=== PATIENT | female | born 1990 | race Caucasian/White ===

== ENCOUNTER 2017-10-24 13:09 | Emergency (ER) | payer SELFPAY ==
--- NOTE | 2017-10-24 13:24 | NUR ---
CALLED IN [facility]-NO ANSWER
--- NOTE | 2017-10-24 13:27 | NUR ---
CALLED IN [facility]-NO ANSWER
--- NOTE | 2017-10-24 13:41 | NUR ---
CALLED IN [facility]- NO ANSWER
== END 2017-10-24 13:42 | disposition left against medical advice (07) ==
LOC: ER 13:11
DX: Z53.21 Procedure and treatment not carried out due to patient leaving prior to being seen by health care provider (principal)

== ENCOUNTER 2018-07-03 12:52 | Emergency (ER) | payer OTHER, MEDICAID ==
[~2018-07-03] VITALS: Ht 149.9 cm; Wt 37.7 kg
[2018-07-03] MEDS ORDERED: HYDROCODONE/APAP 5/325MG 1 EACH TABLET PO STA (13:19)
[2018-07-03] MEDS ORDERED: HYDROCODONE/APAP 5/325MG 1 EACH TABLET ONE (13:25)
[2018-07-03 13:45] LABS: BASOPHILS % (AUTO) 0.6 % (0.0-2.0); EOSINOPHILS % (AUTO) 0.3 % (0.0-6.0); HEMATOCRIT 42 % (33-45); LYMPHOCYTES # (AUTO) 2.2 /CMM (0.8-4.8); LYMPHOCYTES % (AUTO) 43.8 % (20.0-44.0); MEAN CORPUSCULAR HGB CONC 34 g/dl (31.0-36.0); MEAN CORPUSCULAR VOLUME 84 fL (82-100); MONOCYTES # (AUTO) 0.4 /CMM (0.1-1.30); MONOCYTES % (AUTO) 7.9 % (2.0-12.0); NEUTROPHILS # (AUTO) 2.4 /CMM (1.8-8.9); NEUTROPHILS % (AUTO) 47.4 % (43.0-81.0); PLATELET COUNT (AUTO) 253 /CMM (150-450); RED BLOOD CELL COUNT(AUTO) 4.95 MIL/uL (4.0-5.2); WHITE BLOOD COUNT (AUTO) 5.1 K/uL (4.3-11.0)
[2018-07-03 13:51] LABS: CALCIUM, SERUM 8.4 mg/dL (8.5-10.1); CREATININE 0.7 mg/dL (0.6-1.3); POTASSIUM 4.2 mmol/L (3.5-5.1)
[2018-07-03 13:57] LABS: ALBUMIN 3.9 g/dL (3.4-5.0); BILIRUBIN,TOTAL 0.4 mg/dL (0.2-1.0)
[2018-07-03 14:07] LABS: APPEARANCE,URINE SL CLOUDY (CLEAR); BILIRUBIN,URINE 1+ (NEGATIVE); BLOOD, URINE NEGATIVE Ery/uL (NEGATIVE); COLOR,URINE YELLOW (YELLOW); KETONES,URINE 1+ (NEGATIVE); LEUKOCYTE ESTERASE ,URINE TRACE (NEGATIVE); NITRITE, URINE NEGATIVE (NEGATIVE); PROTEIN,URINE TRACE mg/dl (NEGATIVE); UGLUCOSE NEGATIVE (NEGATIVE); UROBILINOGEN,URINE 0.2 EU/dL (0.2)
[2018-07-03 14:25] LABS: BACTERIA,URINE Few /HPF (None Seen); MUCUS,URINE Few /LPF (None Seen); RBC,URINE 0-2 /HPF (0-2); SQUAMOUS EPITHELIAL CELL,UR Moderate /HPF (None Seen)
[2018-07-03 14:53] VITALS: BP 110/71
== END 2018-07-03 14:54 | disposition home or self-care (01) ==
LOC: ER 13:04
DX: M79.10 Myalgia, unspecified site (principal); K21.9 Gastro-esophageal reflux disease without esophagitis; G40.909 Epilepsy, unspecified, not intractable, without status epilepticus; F17.200 Nicotine dependence, unspecified, uncomplicated; F12.10 Cannabis abuse, uncomplicated
CPT/HCPCS: 36415; 80053-TC; 80164-TC; 81000-TC; 84703-TC; 85025-TC; A4606; Z7610

== ENCOUNTER → 2021-05-06 | Emergency (ER) | payer MEDICARE, OTHER ==
[~2021-05-06] VITALS: Ht 149.9 cm; Wt 40.8 kg
[~2021-05-06] MED LIST: IV NS 0.9% 1,000 ML BAG IV ONE; KETOROLAC TROMETHAMINE INJ 30 MG/ML VIAL IV ONE; KETOROLAC TROMETHAMINE INJ 30 MG/ML VIAL ONE; ONDANSETRON HCL/PF 4 MG/2 ML VIAL IVP ONE; ONDANSETRON HCL/PF 4 MG/2 ML VIAL ONE
--- NOTE | 2021-05-06 11:46 | NUR ---
Pt to the er bed 6 bibself C/O "I think I might be having an ulcerative collitis flare-up". pt c/o N/V denies diarrhea. Patient is alert and oriented x4. patient is ambulatory with a steady gait. Breathing evenly and unlabored on room air at 100%. Patient is connected to the monitor. Will continue to monitor patient closely.
--- NOTE | 2021-05-06 11:48 | NUR ---
urine collected and sent to the lab.
--- NOTE | 2021-05-06 12:01 | NUR ---
Patient c/o lower abdominal pain. MD notified. No orders given.
[2021-05-06 12:03] VITALS: BP 111/82
[2021-05-06 12:27] LABS: BASOPHILS # (AUTO) 0.2 K/uL (0.0-0.2); BASOPHILS % (AUTO) 2.1 % (0.0-2.0); EOSINOPHILS % (AUTO) 0.4 % (0.0-6.0); HEMATOCRIT 40 % (33-45); HEMOGLOBIN 13.2 g/dL (11.5-14.8); LYMPHOCYTES # (AUTO) 1.2 K/uL (0.8-4.8); MEAN CORPUSCULAR HGB CONC 33 g/dl (31.0-36.0); MEAN CORPUSCULAR VOLUME 83 fL (82-100); MONOCYTES # (AUTO) 0.5 K/uL (0.1-1.30); MONOCYTES % (AUTO) 5.6 % (2.0-12.0); NEUTROPHILS # (AUTO) 6.3 K/uL (1.8-8.9); NEUTROPHILS % (AUTO) 76.9 % (43.0-81.0); PLATELET COUNT (AUTO) 272 K/uL (150-450); RED BLOOD CELL COUNT(AUTO) 4.82 MIL/uL (4.0-5.2); WHITE BLOOD COUNT (AUTO) 8.1 K/uL (4.3-11.0)
[2021-05-06 12:34] LABS: CALCIUM, SERUM 8.7 mg/dL (8.5-10.1); CREATININE 0.6 mg/dL (0.6-1.3); POTASSIUM 3.8 mmol/L (3.5-5.1)
[2021-05-06 12:39] LABS: ALBUMIN 3.7 g/dL (3.4-5.0); BILIRUBIN,DIRECT 0.1 mg/dL (0.0-0.2); BILIRUBIN,TOTAL 0.4 mg/dL (0.2-1.0); TOTAL PROTEIN, SERUM 6.4 g/dL (6.4-8.2)
--- NOTE | 2021-05-06 13:09 | NUR ---
Patient taken to Ct.
--- NOTE | 2021-05-06 14:37 | NUR ---
Ultrasound at bedside
== END | disposition home or self-care (01) ==
LOC: ER 11:01
DX: R10.84 Generalized abdominal pain (principal); N83.201 Unspecified ovarian cyst, right side; K59.00 Constipation, unspecified; R22.2 Localized swelling, mass and lump, trunk; F11.20 Opioid dependence, uncomplicated; K51.90 Ulcerative colitis, unspecified, without complications; G40.909 Epilepsy, unspecified, not intractable, without status epilepticus; K21.9 Gastro-esophageal reflux disease without esophagitis; F12.90 Cannabis use, unspecified, uncomplicated
CPT/HCPCS: 36415; 74176; 76856; 80048; 80076; 83690; 84702; 85025; 96361; 96374; 96375; 99285; J1885; J2405

== ENCOUNTER 2022-01-06 12:11 | Emergency (ER) | payer MEDICARE, OTHER ==
[~2022-01-06] VITALS: Ht 149.9 cm; Wt 40.8 kg
[2022-01-06 13:05] LABS: BASOPHILS % (AUTO) 0.2 % (0.0-2.0); EOSINOPHILS % (AUTO) 0.3 % (0.0-6.0); HEMATOCRIT 42 % (33-45); HEMOGLOBIN 13.9 g/dL (11.5-14.8); LYMPHOCYTES # (AUTO) 1.3 K/uL (0.8-4.8); MEAN CORPUSCULAR HGB CONC 33 g/dl (31.0-36.0); MEAN CORPUSCULAR VOLUME 83 fL (82-100); MONOCYTES # (AUTO) 1.1 K/uL (0.1-1.30); MONOCYTES % (AUTO) 8.4 % (2.0-12.0); NEUTROPHILS # (AUTO) 10.9 K/uL (1.8-8.9); NEUTROPHILS % (AUTO) 81.1 % (43.0-81.0); PLATELET COUNT (AUTO) 290 K/uL (150-450); WHITE BLOOD COUNT (AUTO) 13.4 K/uL (4.3-11.0)
--- NOTE | 2022-01-06 13:05 | NUR ---
CARMENZA [id number] From Home "SO states she is abusing prescription meds now c/o Abdominal Pain. PLACED ON BED, AAOX4.
[2022-01-06 13:13] LABS: CALCIUM, SERUM 8.8 mg/dL (8.5-10.1); CREATININE 0.6 mg/dL (0.6-1.3); POTASSIUM 3.7 mmol/L (3.5-5.1)
[2022-01-06 13:19] LABS: ALBUMIN 4.1 g/dL (3.4-5.0); BILIRUBIN,DIRECT 0.1 mg/dL (0.0-0.2); BILIRUBIN,TOTAL 0.5 mg/dL (0.2-1.0); TOTAL PROTEIN, SERUM 6.9 g/dL (6.4-8.2)
--- NOTE | 2022-01-06 13:20 | NUR ---
PATIENT ELSUPRIYA DE LA CRUZ AWARE
[2022-01-06 13:26] VITALS: BP 128/80
== END 2022-01-06 13:35 | disposition home or self-care (01) ==
LOC: ER 12:14
DX: Z53.21 Procedure and treatment not carried out due to patient leaving prior to being seen by health care provider (principal)
CPT/HCPCS: 36415; 80048-TC; 80076-TC; 83690-TC; 85025-TC

== ENCOUNTER 2022-03-02 21:39 | Emergency (ER) | payer MEDICARE, OTHER ==
[~2022-03-02] VITALS: Ht 149.9 cm; Wt 52.2 kg
--- NOTE | 2022-03-02 21:45 | NUR ---
[id number] FROM HOME C/O SEIZURE 30 MINUTES AGO. SEIZURE X2 TODAY. HX SEIZURE. PT A/OX4. TOLERATING R/A WELL WITH NO RESP DISTRESS. CONNECTED PT TO POX AND MONITOR. PT AMBULATORY WITH STEADY GAIT. SAFETY & SEIZURE PRECAUTIONS IN PLACE.
--- NOTE | 2022-03-02 21:58 | NUR ---
LAC #20G S/L BLOOD COLLECTED AND SENT TO LAB
--- NOTE | 2022-03-02 22:02 | NUR ---
PT SIGNED WAIVER FORM; VERBALIZED UNDERSTANDING
--- NOTE | 2022-03-02 22:10 | NUR ---
URINE COLLECTED AND SENT TO LAB
--- NOTE | 2022-03-02 22:21 | NUR ---
POC ACCUCHECK BS 83
--- NOTE | 2022-03-02 22:22 | NUR ---
EMT AT PT'S BEDSIDE FOR EKG
[2022-03-02] MEDS ORDERED: ACETAMINOPHEN 325 MG TABLET PO ONE (22:30)
[2022-03-02] MEDS ORDERED: IV NS 0.9% 500 ML BAG IV ONE (22:30)
[2022-03-02] MEDS ORDERED: ACETAMINOPHEN 325 MG TABLET ONE (22:33)
[2022-03-02 22:37] LABS: BASOPHILS % (AUTO) 0.4 % (0.0-2.0); EOSINOPHILS % (AUTO) 0.5 % (0.0-6.0); HEMATOCRIT 40 % (33-45); HEMOGLOBIN 13.1 g/dL (11.5-14.8); LYMPHOCYTES # (AUTO) 2.1 K/uL (0.8-4.8); MEAN CORPUSCULAR HGB CONC 33 g/dl (31.0-36.0); MEAN CORPUSCULAR VOLUME 83 fL (82-100); MONOCYTES # (AUTO) 0.4 K/uL (0.1-1.30); MONOCYTES % (AUTO) 6.6 % (2.0-12.0); NEUTROPHILS # (AUTO) 3.2 K/uL (1.8-8.9); NEUTROPHILS % (AUTO) 55.5 % (43.0-81.0); PLATELET COUNT (AUTO) 301 K/uL (150-450); RED BLOOD CELL COUNT(AUTO) 4.81 MIL/uL (4.0-5.2); WHITE BLOOD COUNT (AUTO) 5.7 K/uL (4.3-11.0)
--- NOTE | 2022-03-02 22:38 | NUR ---
PT REFUSED CT; HAD LAST CT 1 MONTH AGO WITH NEGATIVE RESULTS. DR. CORDOBA NOTIFIED
[2022-03-02 22:47] LABS: CALCIUM, SERUM 9.1 mg/dL (8.5-10.1); CARBON DIOXIDE 30 mmol/L (21-32); CHLORIDE 100 mmol/L (98-107); CREATININE 0.7 mg/dL (0.6-1.3); GLUCOSE 95 mg/dL (74-106); POTASSIUM 3.5 mmol/L (3.5-5.1); SODIUM SERUM 136 mmol/L (136-145); UREA NITROGEN, BLOOD 12 mg/dL (7-18)
--- NOTE | 2022-03-02 22:51 | NUR ---
PT REFUSED DEPAKOTE. DR. CORDOBA DO AWARE.
[2022-03-02 22:54] LABS: ALANINE AMINOTRANSFERASE 20 U/L (12-78); ALBUMIN 4.2 g/dL (3.4-5.0); ALKALINE PHOSPHATASE 60 U/L (46-116); ASPARTATE AMINOTRANSFERASE 24 U/L (15-37); BILIRUBIN,DIRECT 0.2 mg/dL (0.0-0.2); BILIRUBIN,TOTAL 0.7 mg/dL (0.2-1.0); TOTAL PROTEIN, SERUM 7.3 g/dL (6.4-8.2)
[2022-03-02 22:55] LABS: ALCOHOL, BLOOD < 3 mg/dL (0-0)
[2022-03-02 23:01] LABS: BILIRUBIN,URINE MODERATE (NEGATIVE); COLOR,URINE YELLOW (YELLOW); LEUKOCYTE ESTERASE ,URINE TRACE (NEGATIVE); NITRITE, URINE NEGATIVE (NEGATIVE); PROTEIN,URINE TRACE mg/dl (NEGATIVE); UGLUCOSE NEGATIVE (NEGATIVE)
[2022-03-02 23:05] LABS: BACTERIA,URINE Few /HPF (None Seen); MUCUS,URINE Few /LPF (None Seen); SQUAMOUS EPITHELIAL CELL,UR Few /HPF (None Seen)
--- NOTE | 2022-03-02 23:12 | NUR ---
PT REFUSED CHEST XRAY
[2022-03-02] MEDS ORDERED: NITR100C6 PO (23:14)
--- NOTE | 2022-03-02 23:25 | NUR ---
IV removed. Catheter intact and site benign. Pressure and 4x4 applied to site. No bleeding noted.
--- NOTE | 2022-03-02 23:25 | NUR ---
Patient discharged to home in stable condition. Written and verbal after care instructions given. Patient verbalizes understanding of instruction.
[2022-03-02 23:26] VITALS: BP 112/68
== END 2022-03-02 23:27 | disposition home or self-care (01) ==
LOC: ER 21:46
DX: G40.909 Epilepsy, unspecified, not intractable, without status epilepticus (principal); F19.10 Other psychoactive substance abuse, uncomplicated; N39.0 Urinary tract infection, site not specified; Z91.14 Patient's other noncompliance with medication regimen; K21.9 Gastro-esophageal reflux disease without esophagitis; F12.90 Cannabis use, unspecified, uncomplicated
CPT/HCPCS: 99284; 93005; 85025; 80048; 87086; 80076; 81001; 36415; 85730; 82962; 80320; 80307; J7040; G0480

== ENCOUNTER 2022-03-25 15:07 | Emergency (ER) | payer MEDICARE, OTHER ==
[~2022-03-25] VITALS: Ht 149.9 cm; Wt 37.2 kg
[~2022-03-25 15:07] MED LIST changes: -IV NS 0.9% 1,000 ML BAG IV ONE; -KETOROLAC TROMETHAMINE INJ 30 MG/ML VIAL IV ONE; -KETOROLAC TROMETHAMINE INJ 30 MG/ML VIAL ONE; +NITR100C6 PO; -ONDANSETRON HCL/PF 4 MG/2 ML VIAL IVP ONE; -ONDANSETRON HCL/PF 4 MG/2 ML VIAL ONE
--- NOTE | 2022-03-25 15:23 | NUR ---
DR CHAO AT THE BEDSIDE
[2022-03-25] MEDS ORDERED: ONDANSETRON HCL/PF 4 MG/2 ML VIAL ONE ×2 (15:24→17:04)
[2022-03-25] MEDS ORDERED: IV NS 0.9% 1,000 ML BAG IV ONE (15:30)
[2022-03-25] MEDS ORDERED: MORPHINE SULFATE INJ 2 MG/ML DISP.SYRIN IV ONE (15:30)
[2022-03-25] MEDS ORDERED: ONDANSETRON HCL/PF 4 MG/2 ML VIAL IVP ONE (15:30)
[2022-03-25] MEDS ORDERED: MORPHINE SULFATE INJ 4 MG/ML DISP.SYRIN ONE (15:35)
[2022-03-25 16:06] LABS: BASOPHILS % (AUTO) 0.5 % (0.0-2.0); EOSINOPHILS % (AUTO) 0.8 % (0.0-6.0); HEMATOCRIT 43 % (33-45); HEMOGLOBIN 13.9 g/dL (11.5-14.8); LYMPHOCYTES # (AUTO) 2.6 K/uL (0.8-4.8); LYMPHOCYTES % (AUTO) 28.3 % (20.0-44.0); MEAN CORPUSCULAR HGB CONC 32 g/dl (31.0-36.0); MEAN CORPUSCULAR VOLUME 85 fL (82-100); MONOCYTES # (AUTO) 0.9 K/uL (0.1-1.30); MONOCYTES % (AUTO) 9.4 % (2.0-12.0); NEUTROPHILS # (AUTO) 5.6 K/uL (1.8-8.9); PLATELET COUNT (AUTO) 238 K/uL (150-450); RED BLOOD CELL COUNT(AUTO) 5.08 MIL/uL (4.0-5.2); WHITE BLOOD COUNT (AUTO) 9.2 K/uL (4.3-11.0)
[2022-03-25 16:23] LABS: BILIRUBIN,DIRECT 0.2 mg/dL (0.0-0.2); BILIRUBIN,TOTAL 0.6 mg/dL (0.2-1.0); CALCIUM, SERUM 9.1 mg/dL (8.5-10.1); CREATININE 0.6 mg/dL (0.6-1.3); TOTAL PROTEIN, SERUM 6.9 g/dL (6.4-8.2)
[2022-03-25] MEDS ORDERED: ONDANSETRON HCL/PF - ER 4 MG/2 ML VIAL IV ONE (17:00)
--- NOTE | 2022-03-25 18:04 | NUR ---
PT PROVIDED W/ SALTINE CRACKERS AND APPLE JUICE; PT ABLE TO EAT AND SWALLOW FOOD. NO COMPLAINT OF NAUSEA/VOMITING.
--- NOTE | 2022-03-25 18:21 | NUR ---
DR CHAO MADE AWARE THAT PT ABLE TO TOLERATE PO CHALLENGE.
--- NOTE | 2022-03-25 18:43 | NUR ---
CANCEL CT SCAN PER DR CHAO
[2022-03-25] MEDS ORDERED: POTASSIUM CHLORIDE 20 MEQ TAB.PRT.SR PO ONE ×2 (19:00→19:05)
--- NOTE | 2022-03-25 19:04 | NUR ---
URINE SAMPLE COLLECTED AND SENT TO LAB
--- NOTE | 2022-03-25 19:10 | NUR ---
IV removed. Catheter intact and site benign. Pressure and 4x4 applied to site. No bleeding noted.
--- NOTE | 2022-03-25 19:22 | NUR ---
Patient discharged to home in stable condition. Written and verbal after care instructions given. Patient verbalizes understanding of instruction.
[2022-03-25 19:23] VITALS: BP 104/67
[2022-03-25 20:02] LABS: BILIRUBIN,URINE NEGATIVE (NEGATIVE); COLOR,URINE YELLOW (YELLOW); LEUKOCYTE ESTERASE ,URINE TRACE (NEGATIVE); NITRITE, URINE NEGATIVE (NEGATIVE); PROTEIN,URINE NEGATIVE (NEGATIVE); UGLUCOSE NEGATIVE (NEGATIVE); UROBILINOGEN,URINE 0.2 EU/dL (0.2)
[2022-03-25 20:12] LABS: BACTERIA,URINE 1+ /HPF (None Seen); RBC,URINE 0-2 /HPF (0-2)
== END 2022-03-25 19:23 | disposition home or self-care (01) ==
LOC: ER 15:25
DX: R10.84 Generalized abdominal pain (principal); R11.2 Nausea with vomiting, unspecified; G40.909 Epilepsy, unspecified, not intractable, without status epilepticus; F17.200 Nicotine dependence, unspecified, uncomplicated; K21.9 Gastro-esophageal reflux disease without esophagitis; Z88.2 Allergy status to sulfonamides
CPT/HCPCS: 99284; 96374; 96361; 96375; 96376; 85025; 80048; 87086; 83690; 80076; 84703; 81001; 36415; J2270; J2405 ×3; J7030

== ENCOUNTER 2022-08-07 07:07 | Emergency (ER) | payer MEDICARE, OTHER ==
[~2022-08-07] VITALS: Ht 160 cm; Wt 46.3 kg
--- NOTE | 2022-08-07 07:19 | NUR ---
[id number] FROM HOME FOR CHRONIC HEADACHE X 5 MONTHS, WORSE THIS MORNING. PT WAS OFFERED CT SCAN BUT CHOSE TO LEAVE AND GO TO THE [facility] WHERE HER PRIMARY DOCTOR IS. PT LEFT WITH STEADY GAIT. AAOX4. VSHazel BERGERON MADE AWARE.
[2022-08-07 07:37] VITALS: BP 126/67
== END 2022-08-07 07:58 | disposition left against medical advice (07) ==
LOC: ER 07:18
DX: Z53.21 Procedure and treatment not carried out due to patient leaving prior to being seen by health care provider (principal)